=== PATIENT | female | born 1995 | race Two or more races ===

== ENCOUNTER 2025-01-06 08:04 | Outpatient (RCR) | payer BC, SELFPAY | END 2025-01-22 23:59 | disposition home or self-care (01) | LOC: SCTC 08:04 | PROVIDERS: PCP Nurse Practitioner Family; Referring Provider Nurse Practitioner Family; Visit Provider Nurse Practitioner Family | DX: D50.0 Iron deficiency anemia secondary to blood loss (chronic) (principal); N92.0 Excessive and frequent menstruation with regular cycle | CPT/HCPCS: 99212; G0463 ==

== ENCOUNTER 2025-04-05 09:50 | Outpatient (RCR) | payer BC, MEDICAID, SELFPAY | END 2025-04-24 23:59 | disposition home or self-care (01) | LOC: SCTC 09:50 | PROVIDERS: PCP Nurse Practitioner Family; Referring Provider Nurse Practitioner Family; Visit Provider Nurse Practitioner Family | DX: D50.9 Iron deficiency anemia, unspecified (principal); N92.0 Excessive and frequent menstruation with regular cycle; I10 Essential (primary) hypertension | CPT/HCPCS: 99213; G0463 ==

== ENCOUNTER 2025-06-07 13:45 | Outpatient (RCR) | payer BC, MEDICAID, SELFPAY | END 2025-06-24 23:59 | disposition home or self-care (01) | LOC: SCTC 13:45 | PROVIDERS: PCP Internal Medicine; Referring Provider Internal Medicine; Visit Provider Nurse Practitioner Family | DX: D50.0 Iron deficiency anemia secondary to blood loss (chronic) (principal); N92.0 Excessive and frequent menstruation with regular cycle; I10 Essential (primary) hypertension; E66.9 Obesity, unspecified; Z68.42 Body mass index [BMI] 45.0-49.9, adult | CPT/HCPCS: 96365; 96375; 99212; J2916; J2919; J3490; J7040; J7050; Q0138; G0463 ==

== ENCOUNTER → 2025-06-16 | Outpatient (CLI) | payer BC, MEDICAID, SELFPAY ==
--- NOTE | 2025-06-16 | XR_ITS ---
Examination: Hand, left 3 views Technique: Hand AP, oblique, lateral 3 views Date and time of exam: June 16, 2025 0717 hours INDICATIONS: Left hand pain beginning one week ago. FINDINGS: Mild narrowing radiocarpal joint No fracture or dislocation No erosive arthritis. No avascular necrosis Impression: No fracture or dislocation No erosive or other significant arthritic change
--- NOTE | 2025-06-16 | XR_ITS ---
Examination: Left wrist 2 views Technique one AP lateral left wrist 2 views Date and time: June 16, 2025 0721 hours INDICATIONS: Left wrist swelling and pain beginning one week ago. FINDINGS: Mild narrowing radiocarpal joint No fracture or dislocation No erosive arthritis No avascular necrosis IMPRESSION: Mild narrowing radiocarpal joint
[2025-06-16 08:24] LABS: Basophils # (Auto) 0.0 Thou/mm3 (0.0-0.2); Basophils % (Auto) 0 % (0-2.5); Eosinophils # (Auto) 0.2 Thou/mm3 (0.0-0.5); Eosinophils % (Auto) 2 % (0-10); Hematocrit 37.3 % (36.0-46.0); Hemoglobin 12.7 g/dL (12.0-16.0); Immature Granulocytes Auto 0.04 Thou/mm3 (0.00-0.00); Immature Reticulocyte Fraction 23.4 % (3.0-15.9); Lymphocytes # (Auto) 2.8 Thou/mm3 (1.0-4.8); Lymphocytes % (Auto) 29 % (10-50); Mean Corpuscular HGB Conc 34.0 g/dl (31.0-37.0); Mean Corpuscular Hemoglobin 27.9 pg (25.0-35.0); Mean Corpuscular Volume 82 fL (80-100); Monocytes # (Auto) 0.6 Thou/mm3 (0.0-0.8); Monocytes % (Auto) 6 % (0-12); Neutrophils # (Auto) 5.9 Thou/mm3 (1.8-7.7); Neutrophils % (Auto) 63 % (37-80); Nucleated Red Blood Cell # 0.00 Thou/mm3 (0.00-0.00); Nucleated Red Blood Cell % 0 /100 WBC (0); Platelet Count 288 Thou/mm3 (140-440); RDW Standard Deviation 43.8 fL (36.4-46.3); Red Blood Count 4.56 Miln/mm3 (4.00-5.20); Reticulocyte % (Auto) 3.9 % (0.5-1.5); Reticulocyte Absolute Auto 177.8 Biln/L (25.0-75.0); Reticulocyte Hgb Content 33.5 pg (28.0-35.0); White Blood Count 9.5 Thou/mm3 (3.6-11.0)
[2025-06-16 08:33] LABS: Glucose Estimated Average 114 mg/dL (80-131); Hemoglobin A1C 5.6 % Hgb (4.8-6.0)
[2025-06-16 08:41] LABS: Folate 18.51 ng/mL (>5.38); Vitamin B12 571 pg/mL (211-911)
[2025-06-16 08:43] LABS: Ferritin 168 ng/mL (7.3-270.7); Iron 51 mcg/dL (50-170); Percent Iron Saturation 16 % (20-55); Total Iron Binding Capacity 307 mcg/dL (250-425); Unsaturated Iron Binding 256 (225-295)
[2025-06-16 08:47] LABS: Alanine Aminotransferase 41 U/L (10-49); Albumin, Serum 4.5 gm/dL (3.5-5.0); Albumin/Globulin Ratio 1.7 (1.2-2.2); Alkaline Phosphatase 73 U/L (46-116); Anion Gap 7 (7-16); Aspartate Amino Transferase 31 U/L (0-34); BUN/Creatinine Ratio 15 Ratio (12-20); Beta HCG,Quantitative < 1 mIU/mL (<5.0); Bilirubin,Total 0.3 mg/dL (0.3-1.2); Blood Urea Nitrogen 12 mg/dL (9-23); Calcium 9.2 mg/dL (8.3-10.6); Calcium (Corrected) 9.2 mg/dL (8.5-10.1); Carbon Dioxide 28.1 mMol/L (20.0-31.0); Cardiac Risk Estimate 3.9 RATIO (3.7-5.6); Chloride 104 mMol/L (98-107); Cholesterol 164 mg/dL (132-200); Creatinine (Component) 0.8 mg/dL (0.6-1.3); Free T4 (Free Thyroxine) 1.10 ng/dL (0.89-1.76); Globulin 2.6 gm/dL (2.3-3.5); Glucose 119 mg/dL (74-106); HDL Cholesterol 42 mg/dL (40-60); LDL Cholesterol,Calculated 83 mg/dL (0-130); Osmolality,Calculated 278 (275-295); Potassium 4.3 mMol/L (3.4-5.1); Sodium 139 mMol/L (136-145); Thyroid Stimulating Hormone 4.28 uIU/mL (0.55-4.78); Total Protein 7.1 gm/dL (5.7-8.2); Triglycerides 194 mg/dL (30-150); eGFR > 60 See Note
== END | disposition home or self-care (01) ==
LOC: CDIM 06:50
PROVIDERS: PCP Nurse Practitioner Family; Referring Provider Nurse Practitioner Family; Visit Provider Nurse Practitioner Family
DX: M79.642 Pain in left hand (principal); M25.832 Other specified joint disorders, left wrist; I10 Essential (primary) hypertension; D50.0 Iron deficiency anemia secondary to blood loss (chronic)
CPT/HCPCS: 36415; 73100; 73130; 80053; 80061; 82607; 82728; 82746; 83036; 83540; 83550; 84439; 84443; 84702; 85025; 85046

== ENCOUNTER 2025-07-21 13:35 | Outpatient (RCR) | payer BC, MEDICAID, SELFPAY | END 2025-07-25 23:59 | disposition home or self-care (01) | LOC: SCTC 13:35 | PROVIDERS: PCP Nurse Practitioner Family; Referring Provider Nurse Practitioner Family; Visit Provider Nurse Practitioner Family | DX: D50.9 Iron deficiency anemia, unspecified (principal); I10 Essential (primary) hypertension; E66.9 Obesity, unspecified; Z68.42 Body mass index [BMI] 45.0-49.9, adult | CPT/HCPCS: 96365; 96375; 99212; A4216; J2919; J3490; J7040; J7050; Q0138; G0463 ==

== ENCOUNTER 2025-09-04 20:05 | Emergency (ER) | payer BC, MEDICAID, SELFPAY ==
[2025-09-04 20:28] VITALS: BP 183/115; PULSE 103; RESP 20; TEMP 36.8; O2SAT 100
--- NOTE | 2025-09-04 20:29 | XR_ITS ---
Examination: Duplex scan of the upper extremity, unilateral left Date and time of exam: September 04, 2025, 2039 hours INDICATIONS: Arm swelling and pain after control implant inserted 4 days ago Technique: Duplex scan of the extremity veins using B-mode/grayscale imaging and Doppler spectral analysis and color flow Attention is directed to internal echogenicity, compression and augmentation involving these veins, color flow assessment, spectral analysis Findings: Major deep venous structures in the extremity demonstrate normal course and caliber. There is no evidence of deep vein thrombosis. Normal color flow and spectral analysis Impression: Negative for DVT..
[2025-09-04 21:51] VITALS: BP 121/94
--- NOTE | 2025-09-04 23:27 | PD.EDEXREM ---
ED Extremity Problem RME/HPI General Chief complaint: Extremity Problem,Nontraumatic Stated complaint: PINCHING AND BURNING SENSATION TO CONTROL Time Seen by Provider: 09/04/25 20:18 Arrival date/time: 09/04/25 20:05 This is a case of 37-year-old female with no medical history came in in the emergency room due to pain on the left upper arm after placing the implant control ( Nexplanon) patient denies any numbness weakness or tingling sensation noted some bruising on the area of the implant denies any fever or chills Limitations: no limitations Related Data Home Medications ?Medication ?Instructions ?Recorded ?Confirmed buspirone 5 mg tablet 5 mg PO BID 05/22/21 05/22/21 Previous Rx's ?Medication ?Instructions ?Recorded amoxicillin 875 mg-potassium 1 tab PO Q12H #10 tabs 05/24/21 clavulanate 125 mg tablet labetalol 200 mg tablet 200 mg PO TID #90 tabs 05/24/21 hydralazine 25 mg tablet 25 mg PO TID #90 tabs 05/25/21 clindamycin HCl 300 mg capsule 300 mg PO Q6H 10 days #40 caps 09/04/25 (Cleocin HCl) hydrocodone 5 mg-acetaminophen 325 1 tab PO Q6H PRN pain #12 tabs 09/04/25 mg tablet Allergies Allergy/AdvReac Type Severity Reaction Status Date / Time doxycycline Allergy Rash Verified 09/04/25 20:06 Review of Systems Review of Systems Systems Reviewed: All systems reviewed, normal except as documented Constitutional Constitutional: Reports system reviewed and no additional complaints, except as documented and Reports as per HPI Cardiovascular Cardiovascular: Reports system reviewed and no additional complaints, except as documented and Reports as per HPI Respiratory Respiratory: Reports system reviewed and no additional complaints, except as documented and Reports as per HPI Gastrointestinal Gastrointestinal: Reports system reviewed and no additional complaints, except as documented and Reports as per HPI Musculoskeletal Musculoskeletal: Reports system reviewed and no additional complaints, except as documented, Reports as per HPI and Reports other (Left upper arm pain) Neurologic Neurologic: Reports system reviewed and no additional complaints, except as documented and Reports as per HPI Past Medical History Past Medical History NEUROLOGIC: Positive Seizures (five years ago); Negative Neurological Disorders CARDIAC: Positive Hypertension; Negative Cardiac Disorders or Congestive Heart Failure RESPIRATORY: Negative Chronic Obstructive Pulmonary Disease (COPD) GASTROINTESTINAL: Negative Gastrointestinal Disorders GENITOURINARY: Negative Genitourinary Disorders or Renal Disease MUSCULOSKELETAL: Negative Musculoskeletal Disorders ENDOCRINE: Negative Endocrine Disorders, Diabetes Mellitus Type 1 or Diabetes Mellitus Type 2 HEMATOLOGIC: Positive Blood Disorders and Anemia PSYCHO/SOCIAL: Positive Anxiety (taken meds) OTHER HISTORY: Negative Hospitalization, Autoimmune Disease, Developmental Delay, Shingles, Falls, Blood Transfusions, Blood Transfusion Reaction or Anesthesia Reactions Family History FAMILY HISTORY: Negative Family Cardiac Disorders, Family Cancer, Family Surgery or Family Anesthesia Reaction Surgical History SURGICAL: Positive Section (05/22/2021) Social History SMOKING STATUS: Never smoker SECOND HAND EXPOSURE: No SUBSTANCE USE: does not use ED Exam General Limitations: Present no limitations General appearance: Present alert, in no apparent distress and other (Patient is awake alert oriented not in distress nontoxic looking well-hydrated well-nourished) Head Head exam: Present atraumatic, normocephalic and normal inspection Eye Eye exam: Present normal appearance, PERRL and EOMI ENT ENT exam: Present normal exam, normal oropharynx and mucous membranes moist Neck Neck exam: Present normal inspection, full ROM and trachea midline; Absent tenderness, meningismus, lymphadenopathy or thyromegaly Chest Chest inspection: Present normal inspection and symmetric chest wall rise; Absent tenderness Respiratory Respiratory exam: Present normal lung sounds bilaterally; Absent respiratory distress, wheezes, stridor, accessory muscle use or prolonged expiratory phase Cardiovascular Cardiovascular exam: Present regular rate and normal rhythm; Absent bradycardia, tachycardia, irregular rhythm, normal heart sounds, systolic murmur, diastolic murmur or rubs Abdominal Exam Abdominal exam: Present soft and normal bowel sounds; Absent distention, tenderness, guarding, rebound, rigidity, diminished bowel sounds, hyperactive bowel sounds, hypoactive bowel sounds or organomegaly Extremities Exam Extremities exam: Present normal inspection and full ROM Expanded Upper Extremity Exam Arm exam: Present tenderness (Mild tenderness on the left upper arm no swelling with mild redness with bruising ROM intact pulses were full and equal capillary refill less than 2 seconds sensory intact), ecchymosis and erythema; Absent swelling, abrasion, laceration, deformity or crepitus Back Exam Back exam: Present normal inspection and full ROM Neurological Exam Neurological exam: Present alert, oriented X3, CN II-XII intact, normal gait and reflexes normal; Absent motor sensory deficit Psychiatric Psychiatric exam: Present normal affect and normal mood Skin Skin exam: Present warm, dry, intact and normal color Course Quality Measures none Orders Category Date Time Status US venous doppler UE LT Stat Exams 09/04/25 20:29 Completed HYDROcodone*/APAP 5/325 [[place] 5/325] Med 09/04/25 20:29 Discontinued 1 tab PO X1 ONE Vital Signs Vital signs: Vital Signs Temperature 98.2 F 09/04/25 20:28 Pulse Rate 103 H 09/04/25 20:28 Respiratory Rate 20 09/04/25 20:28 Blood Pressure 183/115 H 09/04/25 20:28 Pulse Oximetry (%) 100 09/04/25 20:28 Oxygen Delivery Method Room Air 09/04/25 20:28 Oxygen saturation is 100% in room air normal BP noted 121/80 Extremity Problem MDM Narrative MDM Narrative:: This is a case of 37-year-old female with no medical history came in in the emergency room due to pain on the left upper arm after placing the implant control ( Nexplanon) patient denies any numbness weakness or tingling sensation noted some bruising on the area of the implant denies any fever or chills physical examination patient is awake alert oriented not in distress nontoxic looking mild tenderness on the left anterior arm with some bruising and some redness but no discharge no abscess no fluctuance not indurated with mild cellulitis patient is awake alert oriented x 4 no focal deficit clear breath sounds heart normal rate regular rhythm no murmur the rest of the physical examination and neurological exam is normal and unremarkable patient Doppler ultrasound of the left upper arm showed negative for DVT based on my physical examination and history patient symptoms suggestive of cellulitis secondary placing the control implant patient was given [place] for pain the blood pressure was monitored patient already took his blood pressure medication for blood prior to the arrival in the emergency room latest BP showed 121/80 patient was discharged with clindamycin for cellulitis and [place] for pain patient will follow-up with PCP in 2 days for reevaluation and for any worsening symptoms or any emergent concerns she will return to the emergency room immediately or call 911 Patient was discharged with comfortable condition walking with stable gait. Patient verbalized no further complains explained diagnosis and answered patient question. Patient is comfortable with the proposed management plan including the need to follow up with his/her primary care physician and any specialist if applicable Discussed patient for any urgent condition or worsening sx, He/She needed to go to emergency room immediately or call 911. Patient acknowledge the responsibility to follow up as instructed and to monitor her/his symptoms. For any persistence of the symptoms for more than 3-5 days return precaution advised. Discussed the result of the test and was given printed discharge instruction Patient data External records reviewed:: [facility] previous records Clinical information provided by:: patient Social determinants that could affect healthcare access:: none Patient has the following chronic illnesses:: None How is presenting disease/condition affected by chronic disease/condition?: no chronic disease Evaluation data The following diagnostics were reviewed and interpreted by me:: radiology exam(s) Lab and/or radiology exams considered but not ordered:: Reviewed Interpretation Summary: Reviewed Medications / Prescriptions Medications or Prescriptions considered but not ordered:: Given Medication administrations:: Medication Administration History Discontinued Medications Hydrocodone Bitart/Acetaminophen (Hydrocodone/[place] 5/325 Tablet) 1 tab PO X1 ONE Stop: 09/04/25 20:30 Last Admin: 09/04/25 21:01 Dose: Not Given Documented By: BD Non-Admin Reason: Patient Refused Given Consultations Consultation(s) initiated? (list below): No Diagnosis Extremity Problem Differential Diagnosis: superficial thrombophlebitis, deep venous thrombosis of upper extremity and other (Cellulitis) Most likely diagnosis given after review of the tests above:: Cellulitis Admission Indicated Admission indicated?: not indicated Explain why admission is indicated or not indicated:: Not indicated Admission Request Was there a request for admission?: No Admission Attestation Admission request attestation: Not indicated Disposition Plan Disposition Plan: Discharge Discharge Attestation Discharge Attestation: The patient and all family members were given an opportunity to ask questions and understood the discharge instructions. Discharge instructions specifically effects, indications for sooner follow up or return to the emergency department, and the expected course of current diagnosis. Patient condition: Stable Discharge Plan Plan Patient Disposition: HOME (Self Care) Patient condition on transfer: Stable Prescriptions/Referrals Prescriptions/Med Rec: New clindamycin HCl [Cleocin HCl] 300 mg capsule 300 mg PO Q6H 10 Days Qty: 40 0RF hydrocodone-acetaminophen 5-325 mg tablet 1 tab PO Q6H MDD max 4 tabs per day PRN (Reason: pain) Qty: 12 0RF No Action buspirone 5 mg Tablet 5 mg PO BID labetalol 200 mg tablet 200 mg PO TID Qty: 90 1RF amoxicillin-pot clavulanate 875-125 mg tablet 1 tab PO Q12H Qty: 10 0RF hydralazine 25 mg tablet 25 mg PO TID Qty: 90 0RF Referrals: Kevin ([facility]),TARIQ Winn [Primary Care Provider] - In 1 week Problem List Clinical Impression: Arm pain, left, Cellulitis of arm, left Patient/Caregiver Discharge Instructions Education Materials: ED Cellulitis, ED RICE Additional Instructions: Follow-up with your primary care physician in 2 days for reevaluation worsening symptoms or any emergent concern call 911 or go to the nearest emergency room take your medication as directed finish the course of antibiotic keep the area clean and dry Print Language: Bolivian Stand Alone Forms: Karon Award Info., Work/School Release, Patient Portal Info Letter PA/ARPITA Supervising Physician PA/ARPITA Supervising Physician: Dr. Susan Aguilar
== END 2025-09-04 22:04 | disposition home or self-care (01) ==
PROVIDERS: Emergency Provider Emergency Medicine; PCP Physician Assistant
DX: L03.114 Cellulitis of left upper limb (principal)
CPT/HCPCS: 93971; 99283

== ENCOUNTER 2025-09-11 22:48 | Emergency (ER) | payer BC, MEDICAID, SELFPAY ==
[2025-09-11 22:50] VITALS: BMI 49.4
[2025-09-11 22:58] VITALS: BP 171/96; PULSE 85; RESP 20; TEMP 36.9; O2SAT 99
--- NOTE | 2025-09-11 23:01 | XR_ITS ---
Examination: CT brain head without contrast. 2-D sagittal coronal reconstructions Date and time of exam: September 11, 2025 11:20 p.m. INDICATIONS: Left arm numbness today COMPARISON: July 04, 2016 CTDI: vol (mGy): 50.1 DLP: (mGycm): 935 Technique: Multiple CT axial sections of the brain have been obtained, 5 mm slice thickness. Contrast has not been administered. 2-D sagittal, coronal reconstructions have been obtained Low dose protocols were performed. One or more of the following dose reduction techniques were used; automated exposure control, adjustment of the mA and/or KV according to patient size, use of iterative reconstruction technique. Findings: No significant ventricular enlargement. Intra-axial or extra-axial hemorrhage density is not seen. No mass effect or midline shift Basal cisterns are not remarkable. Fourth ventricle is midline. Cranial vault intact. Impression: Negative for acute hemorrhage, mass effect or midline shift Advise clinical correlation and follow-up accordingly
--- NOTE | 2025-09-11 23:30 | EKG_ITS ---
[facility] Test Date: 2025-09-11 Pat Name: JAIR LEAL Department: Room: - Gender: Female Annual Giving Officer: : 1995 Requested By: Miguel Angel Sanders Order Number: [id number] Reading MD: Miguel Angel Sanders Measurements Intervals [place] Rate: 85 P: 28 TX: 157 QRS: -27 QRSD: 104 T: 30 QT: 347 QTc: 413 Interpretive Statements SINUS RHYTHM WITH SINUS ARRHYTHMIA BORDERLINE LEFT AXIS DEVIATION [QRS AXIS < -20] VOLTAGE CRITERIA FOR LVH [MEETS CRITERIA IN ONE OF: R(aVL), S(V1), R(V5), R(V5/V6)+S(V1)] No previous ECG available for comparison /store/S0/[id number].pdf
[2025-09-12 00:08] LABS: Collection Type, Urine Voided
[2025-09-12 00:08] LABS: Basophils # (Auto) 0.0 Thou/mm3 (0.0-0.2); Basophils % (Auto) 0 % (0-2.5); Eosinophils # (Auto) 0.2 Thou/mm3 (0.0-0.5); Eosinophils % (Auto) 2 % (0-10); Hematocrit 39.7 % (36.0-46.0); Hemoglobin 13.2 g/dL (12.0-16.0); Immature Granulocytes Auto 0.04 Thou/mm3 (0.00-0.00); Lymphocytes # (Auto) 3.3 Thou/mm3 (1.0-4.8); Lymphocytes % (Auto) 32 % (10-50); Mean Corpuscular HGB Conc 33.2 g/dl (31.0-37.0); Mean Corpuscular Hemoglobin 29.5 pg (25.0-35.0); Mean Corpuscular Volume 89 fL (80-100); Monocytes # (Auto) 0.6 Thou/mm3 (0.0-0.8); Monocytes % (Auto) 6 % (0-12); Neutrophils # (Auto) 6.3 Thou/mm3 (1.8-7.7); Neutrophils % (Auto) 60 % (37-80); Nucleated Red Blood Cell # 0.00 Thou/mm3 (0.00-0.00); Nucleated Red Blood Cell % 0 /100 WBC (0); Platelet Count 326 Thou/mm3 (140-440); RDW Standard Deviation 49.1 fL (36.4-46.3); Red Blood Count 4.48 Miln/mm3 (4.00-5.20); White Blood Count 10.5 Thou/mm3 (3.6-11.0)
[2025-09-12 00:10] LABS: Bilirubin,Urine Negative (Negative); Blood,Urine Negative (Negative); Clarity,Urine Clear (Clear/Hazy); Color,Urine Lt-Yellow (Lt Yel-Yel); Glucose, Urine Negative (Negative); Ketones,Urine Negative (Negative); Leukocyte Esterase,Urine Negative (Negative); Nitrite,Urine Negative (Negative); PH,Urine 6.5 (5.0-7.0); Protein,Urine Negative (Neg - Trace); RBC,Urine 2 /hpf (0-3); Specific Gravity,Urine 1.022 (1.001-1.035); Squamous Epithelial Cell,Urine 8 /hpf (0-5); Urobilinogen,Urine Negative mg/dL (0.0-1.0); WBC,Urine 2 /hpf (0-5)
[2025-09-12 00:33] LABS: Alanine Aminotransferase 50 U/L (10-49); Albumin, Serum 4.9 gm/dL (3.5-5.0); Albumin/Globulin Ratio 2.0 (1.2-2.2); Alkaline Phosphatase 73 U/L (46-116); Anion Gap 10 (7-16); Aspartate Amino Transferase 29 U/L (0-34); BUN/Creatinine Ratio 15 Ratio (12-20); Bilirubin,Total 0.2 mg/dL (0.3-1.2); Blood Urea Nitrogen 12 mg/dL (9-23); Calcium 9.4 mg/dL (8.3-10.6); Calcium (Corrected) 9.4 mg/dL (8.5-10.1); Carbon Dioxide 25.9 mMol/L (20.0-31.0); Chloride 105 mMol/L (98-107); Creatinine (Component) 0.8 mg/dL (0.6-1.3); Estimated Creatinine Clearance 128.3 mL/min (>60); Globulin 2.5 gm/dL (2.3-3.5); Glucose 118 mg/dL (74-106); Osmolality,Calculated 281 (275-295); Potassium 3.7 mMol/L (3.4-5.1); Sodium 141 mMol/L (136-145); Total Protein 7.4 gm/dL (5.7-8.2); Troponin I < 0.002 ng/mL (0.0-0.045); eGFR > 60 See Note
[2025-09-12 00:43] VITALS: BP 157/87; PULSE 84; RESP 18; TEMP 37.1; O2SAT 99
[2025-09-12 00:52] LABS: HCG,Qualitative Serum Negative
[2025-09-12 01:13] VITALS: RESP 12
--- NOTE | 2025-09-12 04:32 | PD.EDNEURO ---
Neuro Symptoms Deficit-RME/HPI General Chief Complaint: General Adult/Misc Complain Stated Complaint: LEFT ARM NUMBNESS WHERE HAD CONTROL DEVICE Time Seen by Provider: 09/11/25 22:53 Arrival date/time: 09/11/25 22:48 This is a case of 29-year-old female with no medical history came into the emergency room due to left arm numbness today patient was here 09/04/2025 where a implant for control was applied patient was seen here and was treated with cellulitis and was given antibiotic patient was fine symptoms was resolved until today patient noted to have left arm numbness no other symptoms noted denies any injury or trauma denies any swelling or redness Limitations: no limitations Related Data Home Medications ?Medication ?Instructions ?Recorded ?Confirmed buspirone 5 mg tablet 5 mg PO BID 05/22/21 05/22/21 Previous Rx's ?Medication ?Instructions ?Recorded amoxicillin 875 mg-potassium 1 tab PO Q12H #10 tabs 05/24/21 clavulanate 125 mg tablet labetalol 200 mg tablet 200 mg PO TID #90 tabs 05/24/21 hydralazine 25 mg tablet 25 mg PO TID #90 tabs 05/25/21 clindamycin HCl 300 mg capsule 300 mg PO Q6H 10 days #40 caps 09/04/25 (Cleocin HCl) hydrocodone 5 mg-acetaminophen 325 1 tab PO Q6H PRN pain #12 tabs 09/04/25 mg tablet Allergies Allergy/AdvReac Type Severity Reaction Status Date / Time doxycycline Allergy Rash Verified 09/11/25 22:50 Review of Systems Review of Systems Systems Reviewed: All systems reviewed, normal except as documented Constitutional Constitutional: Reports system reviewed and no additional complaints, except as documented and Reports as per HPI Cardiovascular Cardiovascular: Reports system reviewed and no additional complaints, except as documented and Reports as per HPI Respiratory Respiratory: Reports system reviewed and no additional complaints, except as documented and Reports as per HPI Gastrointestinal Gastrointestinal: Reports system reviewed and no additional complaints, except as documented and Reports as per HPI Musculoskeletal Musculoskeletal: Reports system reviewed and no additional complaints, except as documented and Reports as per HPI Neurologic Neurologic: Reports system reviewed and no additional complaints, except as documented and Reports as per HPI Past Medical History Past Medical History NEUROLOGIC: Positive Seizures (five years ago); Negative Neurological Disorders CARDIAC: Positive Hypertension; Negative Cardiac Disorders or Congestive Heart Failure RESPIRATORY: Negative Chronic Obstructive Pulmonary Disease (COPD) GASTROINTESTINAL: Negative Gastrointestinal Disorders GENITOURINARY: Negative Genitourinary Disorders or Renal Disease MUSCULOSKELETAL: Negative Musculoskeletal Disorders ENDOCRINE: Negative Endocrine Disorders, Diabetes Mellitus Type 1 or Diabetes Mellitus Type 2 HEMATOLOGIC: Positive Blood Disorders and Anemia PSYCHO/SOCIAL: Positive Anxiety (taken meds) OTHER HISTORY: Negative Hospitalization, Autoimmune Disease, Developmental Delay, Shingles, Falls, Blood Transfusions, Blood Transfusion Reaction or Anesthesia Reactions Family History FAMILY HISTORY: Negative Family Cardiac Disorders, Family Cancer, Family Surgery or Family Anesthesia Reaction Surgical History SURGICAL: Positive Section (05/22/2021) Social History SMOKING STATUS: Never smoker SECOND HAND EXPOSURE: No SUBSTANCE USE: does not use ED Exam General Limitations: Present no limitations General appearance: Present alert, in no apparent distress and other (Patient is awake alert oriented not in distress nontoxic looking well-hydrated well-nourished) Head Head exam: Present atraumatic and normocephalic Eye Eye exam: Present normal appearance, PERRL and EOMI ENT ENT exam: Present normal exam, normal oropharynx and mucous membranes moist Neck Neck exam: Present normal inspection, full ROM and trachea midline; Absent tenderness, meningismus, lymphadenopathy or thyromegaly Chest Chest inspection: Present normal inspection and symmetric chest wall rise; Absent tenderness Respiratory Respiratory exam: Present normal lung sounds bilaterally Cardiovascular Cardiovascular exam: Present regular rate, normal rhythm and normal heart sounds; Absent bradycardia, tachycardia, irregular rhythm or diastolic murmur Abdominal Exam Abdominal exam: Present soft and normal bowel sounds; Absent distention, tenderness, guarding, rebound, rigidity, diminished bowel sounds, hyperactive bowel sounds, hypoactive bowel sounds or organomegaly Extremities Exam Extremities exam: Present normal inspection and full ROM Expanded Upper Extremity Exam Arm exam: Present normal inspection and other (No redness no ecchymosis no swelling no tenderness pulses were full and equal capillary refill less than 2 seconds sensory is intact motor or sensory reflex were normal ROM intact); Absent full ROM, tenderness, swelling, abrasion, laceration, ecchymosis, deformity, crepitus or erythema Back Exam Back exam: Present normal inspection and full ROM Neurological Exam Neurological exam: Present alert, oriented X3, CN II-XII intact, normal gait, reflexes normal and other (Awake alert oriented x 4 no focal deficit GCS 15/15 steady gait motor or sensory reflex in all extremities were normal CN II to XII is normal negative Babinski memory intact no facial droop no slurring speech); Absent motor sensory deficit Psychiatric Psychiatric exam: Present normal affect and normal mood Skin Skin exam: Present warm, dry, intact, normal color and other (Excellent skin turgor) Course Quality Measures none Orders Category Date Time Status EKG (ED ONLY) *Do not use* NOW Care 09/11/25 23:[address] head/brain wo con Stat Exams 09/11/25 23:01 Completed EKG (ED Only) Stat Exams 09/11/25 23:30 Draft CBC Stat Lab 09/11/25 23:30 Completed CMP [Comprehensive Metabolic Panel] Stat Lab 09/11/25 23:30 Completed HCG,Qualitative Serum Stat Lab 09/11/25 23:30 Completed Troponin I Stat Lab 09/11/25 23:30 Completed Urinalysis Stat Lab 09/11/25 23:48 Completed Vital Signs Vital signs: Vital Signs Temperature 98.4 F 09/11/25 22:58 Pulse Rate 85 09/11/25 22:58 Respiratory Rate 20 09/11/25 22:58 Blood Pressure 171/96 H 09/11/25 22:58 Pulse Oximetry (%) 99 09/11/25 22:58 Oxygen Delivery Method Room Air 09/11/25 22:58 Oxygen saturation 99% room air Neuro Symptoms / Deficit MDM Narrative MDM Narrative:: This is a case of 29-year-old female with no medical history came into the emergency room due to left arm numbness today patient was here 09/04/2025 where a implant for control was applied patient was seen here and was treated with cellulitis and was given antibiotic patient was fine symptoms was resolved until today patient noted to have left arm numbness no other symptoms noted denies any injury or trauma denies any swelling or redness physical examination patient is awake alert oriented not in distress nontoxic looking well-hydrated well-nourished noted left arm no redness no swelling no crepitation no deformity no ecchymosis no phlebitis no cellulitis no abscess ROM is intact pulses were full and equal capillary refill less than 2 seconds sensory is intact neurological exam is normal awake alert oriented x 4 no focal deficit GCS 15/15 steady gait blood test showed no leukocytosis no anemia kidney and liver function is normal no electrolyte imbalance patient troponin is negative patient EKG is normal sinus rhythm CT scan of the head is normal no CVA no TIA based on my physical examination and history patient symptoms suggestive of paresthesia in the left arm patient will follow-up with PCP in 2 days for reevaluation for any persistent recurrent or worsening symptoms return to the emergency room immediately or call 911 she was advised to see the OB to remove the implant and possible change of control patient understood very well the discharge instruction patient was also advised to monitor her blood pressure and to take his medicine blood pressure daily follow-up with his primary care physician to monitor and BP and to refill his medication modified diet regular exercises is advised Patient was discharged with comfortable condition walking with stable gait. Patient verbalized no further complains explained diagnosis and answered patient question. Patient is comfortable with the proposed management plan including the need to follow up with his/her primary care physician and any specialist if applicable Discussed patient for any urgent condition or worsening sx, He/She needed to go to emergency room immediately or call 911. Patient acknowledge the responsibility to follow up as instructed and to monitor her/his symptoms. For any persistence of the symptoms for more than 3-5 days return precaution advised. Discussed the result of the test and was given printed discharge instruction work note given Patient data External records reviewed:: [facility] previous records Clinical information provided by:: patient Social determinants that could affect healthcare access:: none Patient has the following chronic illnesses:: None How is presenting disease/condition affected by chronic disease/condition?: no chronic disease Evaluation data The following diagnostics were reviewed and interpreted by me:: lab results, radiology exam(s) and EKG tracing(s) Lab and/or radiology exams considered but not ordered:: Reviewed Interpretation Summary: Reviewed Medications / Prescriptions Medications or Prescriptions considered but not ordered:: Given Medication administrations:: Given Consultations Consultation(s) initiated? (list below): No Diagnosis Neuro Differential Diagnosis: other (Paresthesia) Most likely diagnosis given after review of the tests above:: Paresthesia Admission Indicated Admission indicated?: not indicated Explain why admission is indicated or not indicated:: Not indicated Admission Request Was there a request for admission?: No Admission Attestation Admission request attestation: Not indicated Disposition Plan Disposition Plan: Discharge Discharge Attestation Discharge Attestation: The patient and all family members were given an opportunity to ask questions and understood the discharge instructions. Discharge instructions specifically effects, indications for sooner follow up or return to the emergency department, and the expected course of current diagnosis. Patient condition: Stable Discharge Plan Plan Patient Disposition: HOME (Self Care) Patient condition on transfer: Stable Prescriptions/Referrals Prescriptions/Med Rec: No Action buspirone 5 mg Tablet 5 mg PO BID labetalol 200 mg tablet 200 mg PO TID Qty: 90 1RF amoxicillin-pot clavulanate 875-125 mg tablet 1 tab PO Q12H Qty: 10 0RF hydralazine 25 mg tablet 25 mg PO TID Qty: 90 0RF clindamycin HCl [Cleocin HCl] 300 mg capsule 300 mg PO Q6H 10 Days Qty: 40 0RF hydrocodone-acetaminophen 5-325 mg tablet 1 tab PO Q6H MDD max 4 tabs per day PRN (Reason: pain) Qty: 12 0RF Referrals: No Primary/Family,Physician [Primary Care Provider] - In 1 week Problem List Clinical Impression: Arm paresthesia, left, Hypertension, uncontrolled Patient/Caregiver Discharge Instructions Education Materials: ED High Blood Pressure ..., ED Paraesthesias Additional Instructions: Follow-up with your primary care physician in 2 days for reevaluation and to be referred to neurologist for further evaluation and treatment of paresthesia left arm he also need to see a pharmacist technician or follow-up with your primary care physician to monitor your uncontrolled hypertension check your blood pressure twice a day and return to the emergency room if greater than 160/100 or become symptomatic continue to take your blood pressure medication and do not skip. Low-fat low-cholesterol diet regular exercise is advised it is also important to see your OB tax services specialist to remove the implant on the left arm and to change her control medication Print Language: Danish Stand Alone Forms: Karon Award Info., Work/School Release, Patient Portal Info Letter PA/MAINTENANCE OF WAY CLERK Supervising Physician PA/MAINTENANCE OF WAY CLERK Supervising Physician: Dr. Cooper
== END 2025-09-12 01:14 | disposition home or self-care (01) ==
PROVIDERS: Nurse Practitioner Family; Emergency Provider Emergency Medicine
DX: R20.2 Paresthesia of skin (principal); I10 Essential (primary) hypertension
CPT/HCPCS: 36415; 70450; 80053; 81001; 84484; 84703; 85025; 93005; 99283